=== PATIENT | female | born 1930 | race Caucasian/White ===

== ENCOUNTER 2016-11-19 08:35 | Emergency (ER) | payer MEDICARE ==
--- NOTE | ~2016-11-19 | CR206 ---
[facility] A Service of [facility] RADIOLOGY TEXT RESULTS PATIENT: MYRIAM SPRINGER LOCATION: SED : [birth year] UNIT #: [id number] AGE: [address]: Jimmy Owens MD SEX: F ORDER DR: [id number] [address] [address] [id number] E MR#: [id number] Acc #: [id number] NAME: MYRIAM SPRINGER : 1930 SEX: F STUDY DATE/TIME: 11/19/2016 0932 UNIT: SED ROOM: STUDY DESCRIPTION: CR Pelvis 1 or 2 Views Attending Physician: Jimmy Owens M.D. Ordering Physician: Jimmy Owens M.D. Primary Care Physician: Justice Bender M.D. MEDICAL IMAGING REPORT This report is preliminary unless electronic signature is present. EXAM Pelvis 11/19/2016 0932 hours CLINICAL HISTORY 86-year-old woman who fell today landing on buttocks. Tail bone pain since fall. COMPARISON Pelvis film and right hip film 08/14/2008 FINDINGS AP pelvis film demonstrates postop change of bilateral hip replacements without evidence of dislocation, hip fracture or hardware failure. The pubic rami are intact. The sacroiliac joints are symmetric. The sacrum is partially obscured by stool. No sacral fracture is seen. IMPRESSION 1. Osteopenia with no pelvic or sacral fracture seen. 2. Bilateral hip replacements without fracture or dislocation. 3. 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 Dictated by... Alda Cerna M.D. THIS IS AN ELECTRONICALLY VERIFIED REPORT Alda Cerna M.D. at 11/20/2016 9:29 AM Leslie TD: 11/19/2016 15:05 JOB #: [id number] [facility] A Service [facility] RADIOLOGY TEXT RESULTS PATIENT: MYRIAM SPRINGER LOCATION: SED : [birth year] UNIT #: [id number] AGE: [address]: Jimmy Owens MD SEX: F ORDER DR: MEDICAL IMAGING REPORT Page 1 of 1
--- NOTE | ~2016-11-19 | CR133 ---
[facility] A Service [facility] RADIOLOGY TEXT RESULTS PATIENT: MYRIAM SPRINGER LOCATION: SED : [birth year] UNIT #: [id number] AGE: [address]: Jimmy Owens MD SEX: F ORDER DR: [id number] [address] [address] [id number] E MR#: [id number] Acc #: [id number] NAME: MYRIAM SPRINGER : 1930 SEX: F STUDY DATE/TIME: 11/19/2016 UNIT: SED ROOM: STUDY DESCRIPTION: CR Forearm 2 View Rt Attending Physician: Jimmy wOens M.D. Ordering Physician: Jimmy Owens M.D. Primary Care Physician: Justice Bender M.D. MEDICAL IMAGING REPORT This report is preliminary unless electronic signature is present. EXAM Right forearm 2 views 11/19/2016 0932 hours HISTORY 86-year-old woman who fell today hitting arm on step stool. Skin tear and pain at the mid- to proximal forearm COMPARISON None. FINDINGS AP and lateral views demonstrate gauze dressing on the soft tissues dorsally along the radial aspect of the mid- to proximal forearm with adjacent soft tissue swelling, likely hematoma. There is no foreign body or fracture seen. 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 IMPRESSION 1. There is soft tissue swelling with probable subcutaneous hematoma in the soft tissues adjacent to the dorsal radial aspect of the proximal third of the forearm. There is no underlying fracture. 2. Osteoarthritis. 3. No foreign body. Dictated by... Alda Cerna M.D. THIS IS AN ELECTRONICALLY VERIFIED REPORT Alda Cerna M.D. at 11/20/2016 9:29 AM JESSICA/jason [facility] A Service of [facility] RADIOLOGY TEXT RESULTS PATIENT: MYRIAM SPRINGER LOCATION: SED : [birth year] UNIT #: [id number] AGE: [address]: Jimmy Owens MD SEX: F ORDER DR: TD: 11/19/2016 15:05 JOB #: [id number] MEDICAL IMAGING REPORT Page 1 of 1
[~2016-11-19 08:35] MED LIST: "\\\"STATIN\\\""; ACETAMINOPHEN PO; CALTRATE PLUS T1 TAB PO; CENTRUM SILVER PO; COUMADIN PO; GERITOL PO; KCL PO; LANOXIN; LASIX PO; LORTAB 5-325 M1 EACH PO; MIRALAX255 GM PO; NORVASC PO; OYSTER CALCIUM500 MG PO; PRESERVISION1 EA; SYNTHROID PO; TOPROL XL
[2016-11-19] MEDS ORDERED: PRAVACHOL (08:41)
[2016-11-19] MEDS ORDERED: COZAAR (08:41)
[2016-11-19 09:20] LABS: BASOPHIL# 0.1 X10e3 (0-0.3); BASOPHIL% 0.6 % (0-2.5); EOSINOPHIL# 0.1 X10e3 (0-0.7); EOSINOPHIL% 1.5 % (0.0-7.0); HEMATOCRIT 44.8 % (35.0-45.0); LYMPHOCYTE# 1.7 X10e3 (1.0-3.5); LYMPHOCYTE% 18.8 % (17.0-45.0); MEAN CELL VOLUME 89.9 FL (83-96); MEAN CORPUSCULAR HEMOGLOBIN 30.2 PG (28-34); MEAN CORPUSCULAR HGB CONC 33.6 g/dL (30-36); MEAN PLATELET VOLUME 9.2 FL (6.5-11.5); MONOCYTE# 1.1 X10e3 (0-1.0); MONOCYTE% 12.5 % (3.0-12.0); NEUTROPHIL% 66.6 % (40-75); PLATELET COUNT 166 X10e3 (140-420); RED BLOOD COUNT 4.98 X10e (3.90-5.30); RED CELL DISTRIBUTION WIDTH 14.2 % (11.0-15.5); WHITE BLOOD COUNT 8.9 X10e3 (4.0-10.5)
[2016-11-19 09:21] LABS: DIFF IND NO
[2016-11-19 09:22] LABS: INR 2.2; PROTHROMBIN TIME (PATIENT) 25.4 SECONDS (9.5-12.4)
== END 2016-11-19 10:55 | disposition home or self-care (01) ==
LOC: SED 08:35
PROVIDERS: Emergency Medicine
DX: S51.811A Laceration without foreign body of right forearm, initial encounter (principal); S30.0XXA Contusion of lower back and pelvis, initial encounter; Z23 Encounter for immunization; Z88.8 Allergy status to other drugs, medicaments and biological substances; Z79.01 Long term (current) use of anticoagulants; Z79.899 Other long term (current) drug therapy; W01.0XXA Fall on same level from slipping, tripping and stumbling without subsequent striking against object, initial encounter; Y92.009 Unspecified place in unspecified non-institutional (private) residence as the place of occurrence of the external cause
CPT/HCPCS: 36415; 72170; 73090; 85025; 85610; 90471; 90715; 99284